=== PATIENT | male | born 1985 | race Caucasian/White ===

== ENCOUNTER 2020-02-25 19:23 | Emergency (ER) | payer MEDICAID, OTHER ==
[~2020-02-25] VITALS: Ht 180.3 cm; Wt 86.2 kg
[2020-02-25 19:38] VITALS: BP 109/54
[2020-02-25] MEDS ORDERED: Ketorolac 30mg Inj IV ONE (19:45)
--- NOTE | 2020-02-25 19:57 | Emergency Room Report ---
History of Present Illness General Chief Complaint: Behavioral Complaint Source: Patient (Tacho Garza) Present Illness HPI 34-year-old male with no significant past medical history here complaining of a 7 out of 10 headache that started shortly after he used methamphetamine. Patient complains of extreme anxiety. Denies any SI or HI at this time. Denies chest pain, shortness of breath, palpitation, dizziness. Denies any head injury. Denies chest pain, palpitation, abdominal pain, nausea vomiting diarrhea. Denies tobacco smoke. Denies other drug use and alcohol intake. (Tacho Garza) Allergies: Coded Allergies: PENICILLINS (Verified Allergy, Unknown, 02/25/20) COVID-19 Screening Contact w/high risk pt: No Experienced COVID-19 symptoms?: No COVID-19 Testing performed EGG SMELLER: No (Tacho Garza) Patient History Past Medical History: see triage record Past Surgical History: none Pertinent Family History: none Social History: Reports: drug use - methamphetamine use Immunizations: UTD Reviewed Nursing Documentation: PMH: Agreed; PSxH: Agreed (Tacho Garza) Nursing Documentation-PMH Past Medical History: No Stated History (Tacho Garza) Review of Systems All Other Systems: negative except mentioned in HPI (Tacho Garza) Physical Exam Vital Signs Date Time Temp Pulse Resp B/P (MAP) Pulse Ox O2 Delivery O2 Flow Rate FiO2 02/25/20 19:28 98.2 92 20 109/54 (72) 98 Room Air Sp02 EP Interpretation: reviewed, normal General Appearance: alert, mild distress Head: normocephalic Eyes: bilateral eye normal inspection, bilateral eye PERRL ENT: hearing grossly normal, normal pharynx, no angioedema, normal voice Neck: full range of motion, supple/symm/no masses Respiratory: chest non-tender, lungs clear, normal breath sounds, speaking full sentences Cardiovascular #1: regular rate, rhythm, no edema, no murmur Cardiovascular #2: 2+ radial (R), 2+ radial (L) Gastrointestinal: normal bowel sounds, non tender, soft, non-distended, no guarding, no rebound Rectal: deferred Genitourinary: no CVA tenderness Musculoskeletal: back normal Neurologic: alert, motor strength/tone normal, oriented x3, sensory intact, responsive, speech normal Psychiatric: judgement/insight normal, no suicidal/homicidal ideation, anxious Skin: no rash Lymphatic: no adenopathy (Tacho Garza) Medical Decision Making PA Attestation All diagnoses and treatment plans were reviewed and discussed with my supervising physician Dr. Cherry (Tacho Garza) Diagnostic Impression: Primary Impression: Methamphetamine abuse Additional Impression: Head ache ER Course 34-year-old male with no significant past medical history here complaining of a 7 out of 10 headache that started shortly after he used methamphetamine. Patient complains of extreme anxiety. Denies any SI or HI at this time. Denies chest pain, shortness of breath, palpitation, dizziness. Denies any head injury. Denies chest pain, palpitation, abdominal pain, nausea vomiting diarrhea. Denies tobacco smoke. Denies other drug use and alcohol intake. Ddx considered but are not limited to: generalized anxiety disorder, panic attack, depression with psycotic featurs, bipolar disorder, drug overdose Vital signs: are WNL, pt. is afebrile H&PE are most consistent with: Methamphetamine abuse, anxiety, headache ORDERS: CBC, CMP, UA, tox screen, EtOH level, troponin ED INTERVENTIONS: NS bolus after patient refuses he said that since his arm hurts he does not want to keep it in, Toradol Patient use the restroom however said that he did not know how to open the urine specimen cup and he did not collect urine upon arrival. Patient does admit to using methamphetamine. I signed out the patient to Dr. Cherry at 8: 40 PM DISCHARGE: At this time pt. is stable for d/c to home. Will provide printed patient care instructions, and any necessary prescriptions. Care plan and follow up instructions have been discussed with the patient prior to discharge. (Tacho Garza) ER Course Assumed care of the patient approximately 2300 from previous provider Briefly this a 34-year-old male presenting for evaluation of anxiety in the setting of recent methamphetamine use. The patient states he use it daily and states he "felt weird" and needed to sleep. He is ambulatory in the ED now. Urinalysis confirms methamphetamine use. Labs otherwise within normal limits. He is stable for outpatient follow-up. Will provide resources for stimulant use disorder. Instructed to return to the ED with new or worsening symptoms. Laboratory Tests Test 02/25/20 19:42 02/26/20 00:50 White Blood Count 10.4 K/UL (4.8-10.8) Red Blood Count 4.71 M/UL (4.70-6.10) Hemoglobin 15.7 G/DL (14.2-18.0) Hematocrit 47.1 % (42.0-52.0) Mean Corpuscular Volume 100 FL (80-99) H Mean Corpuscular Hemoglobin 33.3 PG (27.0-31.0) H Mean Corpuscular Hemoglobin Concent 33.3 G/DL (32.0-36.0) Red Cell Distribution Width 12.4 % (11.6-14.8) Platelet Count 194 K/UL (150-450) Mean Platelet Volume 8.2 FL (6.5-10.1) Neutrophils (%) (Auto) 61.5 % (45.0-75.0) Lymphocytes (%) (Auto) 32.1 % (20.0-45.0) Monocytes (%) (Auto) 4.8 % (1.0-10.0) Eosinophils (%) (Auto) 0.0 % (0.0-3.0) Basophils (%) (Auto) 1.6 % (0.0-2.0) Sodium Level 142 MMOL/L (136-145) Potassium Level 3.8 MMOL/L (3.5-5.1) Chloride Level 106 MMOL/L (98-107) Carbon Dioxide Level 27 MMOL/L (21-32) Anion Gap 9 mmol/L (5-15) Blood Urea Nitrogen 24 mg/dL (7-18) H Creatinine 1.1 MG/DL (0.55-1.30) Estimated Glomerular Filtration Rate > 60 mL/min (>60) Glucose Level 96 MG/DL (74-106) Calcium Level 8.8 MG/DL (8.5-10.1) Total Bilirubin 0.2 MG/DL (0.2-1.0) Aspartate Amino Transferase (AST) 21 U/L (15-37) Alanine Aminotransferase (ALT) 22 U/L (12-78) Alkaline Phosphatase 63 U/L (46-116) Troponin I 0.000 ng/mL (0.000-0.056) Total Protein 7.1 G/DL (6.4-8.2) Albumin 4.3 G/DL (3.4-5.0) Globulin 2.8 g/dL Albumin/Globulin Ratio 1.5 (1.0-2.7) Serum Alcohol < 3 mg/dL Urine Color Yellow Urine Appearance Clear Urine pH 5 (4.5-8.0) Urine Specific [place] 1.030 (1.005-1.035) Urine Protein Negative (NEGATIVE) Urine Glucose (UA) Negative (NEGATIVE) Urine Ketones Negative (NEGATIVE) Urine Blood Negative (NEGATIVE) Urine Nitrite Negative (NEGATIVE) Urine Bilirubin Negative (NEGATIVE) Urine Urobilinogen 1 MG/DL (0.0-1.0) H Urine Leukocyte Esterase Negative (NEGATIVE) Urine Opiates Screen Negative (NEGATIVE) Urine Barbiturates Screen Negative (NEGATIVE) Phencyclidine (PCP) Screen Negative (NEGATIVE) Urine Amphetamines Screen Positive (NEGATIVE) H Urine Benzodiazepines Screen Negative (NEGATIVE) Urine Cocaine Screen Negative (NEGATIVE) Urine Marijuana (THC) Screen Negative (NEGATIVE) (Cheko Lopez MD) ER Course Please see above note. Patient sleeping. Signed out to Dr. Lopez for re-evaluation and disposition. (Farshad Cherry MD) Last Vital Signs Date Time Temp Pulse Resp B/P (MAP) Pulse Ox O2 Delivery O2 Flow Rate FiO2 02/25/20 19:28 98.2 92 20 109/54 (72) 98 Room Air (Tacho Garza) Last Vital Signs Date Time Temp Pulse Resp B/P (MAP) Pulse Ox O2 Delivery O2 Flow Rate FiO2 02/25/20 19:28 98.2 92 20 109/54 (72) 98 Room Air Status: improved (Farshad Cherry MD) Disposition: HOME, SELF-CARE Condition: Stable Tacho Garza Feb 25, 2020 19:57 Cheko Lopez MD Feb 26, 2020 01:14 Farshad Cherry MD Feb 26, 2020 01:19
[2020-02-25 20:18] LABS: ANION GAP 9 mmol/L (5-15); BLOOD UREA NITROGEN 24 mg/dL (7-18); CALCIUM 8.8 MG/DL (8.5-10.1); CARBON DIOXIDE 27 MMOL/L (21-32); CHLORIDE 106 MMOL/L (98-107); CREATININE 1.1 MG/DL (0.55-1.30); POTASSIUM 3.8 MMOL/L (3.5-5.1); SODIUM 142 MMOL/L (136-145)
[2020-02-25 20:22] LABS: ALANINE AMINOTRANSFERASE 22 U/L (12-78); ALBUMIN 4.3 G/DL (3.4-5.0); ALBUMIN/GLOBULIN RATIO 1.5 (1.0-2.7); ALKALINE PHOSPHATASE 63 U/L (46-116); ASPARTATE AMINO TRANSFERASE 21 U/L (15-37); BILIRUBIN,TOTAL 0.2 MG/DL (0.2-1.0)
[2020-02-25 20:30] LABS: BASOPHILS % (AUTO) 1.6 % (0.0-2.0); HEMATOCRIT 47.1 % (42.0-52.0); HEMOGLOBIN 15.7 G/DL (14.2-18.0); LYMPHOCYTES % (AUTO) 32.1 % (20.0-45.0); MEAN CORPUSCULAR VOLUME 100 FL (80-99); MONOCYTES % (AUTO) 4.8 % (1.0-10.0); NEUTROPHILS % (AUTO) 61.5 % (45.0-75.0); PLATELET COUNT 194 K/UL (150-450); RED BLOOD COUNT 4.71 M/UL (4.70-6.10); RED CELL DISTRIBUTION WIDTH 12.4 % (11.6-14.8); WHITE BLOOD COUNT 10.4 K/UL (4.8-10.8)
[2020-02-25 21:15] VITALS: BP 112/56
[2020-02-25 23:45] VITALS: BP 115/63
[2020-02-26 01:01] LABS: APPEARANCE,URINE CLEAR; BILIRUBIN, URINE NEGATIVE (NEGATIVE); GLUCOSE, URINE (UA) NEGATIVE (NEGATIVE); KETONES,URINE NEGATIVE (NEGATIVE); LEUKOCYTE ESTERASE ,URINE NEGATIVE (NEGATIVE); NITRITE,URINE NEGATIVE (NEGATIVE); PH,URINE 5 (4.5-8.0); UROBILINOGEN,URINE 1 MG/DL (0.0-1.0)
[2020-02-26 01:04] LABS: COLOR,URINE YELLOW; PROTEIN,URINE NEGATIVE (NEGATIVE)
[2020-02-26 01:31] VITALS: BP 114/62
== END 2020-02-26 01:31 | disposition home or self-care (01) ==
LOC: EMR 19:45
DX: F15.10 Other stimulant abuse, uncomplicated (principal); R51 Headache; F41.9 Anxiety disorder, unspecified; Z88.0 Allergy status to penicillin
CPT/HCPCS: 36415; 80053; 80307; 81003; 84484; 85025; 96374; G0480; J1885; Z7502; 99284